=== PATIENT | male | born 1960 | race African-American/Black ===

== ENCOUNTER 2019-02-04 14:05 | Emergency (ER) | payer MEDICAID ==
[~2019-02-04] VITALS: Ht 175.3 cm; Wt 100.0 kg
[2019-02-04 14:12] VITALS: BP 140/100
[2019-02-04] MEDS ORDERED: TETANUS, DIPHTHERIA, PERTUSSIS VAC/PF 0.5ML (>7YR OLD) IM ONE (15:15)
[2019-02-04] MEDS ORDERED: BACITRACIN ZINC OINT UDPKT TOP ONE (15:15)
[2019-02-04] MEDS ORDERED: ACETAMINOPHEN 500MG TABLET PO ONE (15:15)
[2019-02-04] MEDS ORDERED: LIDOCAINE 1%/EPI 1:100,000 10 ML VIAL IJ ONE (15:15)
[2019-02-04] MEDS ORDERED: BACITRACIN 15GM TUBE TOP SCH (15:30)
[2019-02-04] MEDS ORDERED: LIDOCAINE HCL/EPINEPHRINE 1%-EPI 1:100,000 20 ML VIAL INFIL NR (15:45)
[2019-02-04] MEDS ORDERED: HYDROCODONE/ACETAMINOPHEN 10/325MG TABLET PO ONE (16:45)
== END 2019-02-04 18:42 | disposition home or self-care (01) ==
LOC: ER 14:05
DX: S81.012A Laceration without foreign body, left knee, initial encounter (principal); F17.200 Nicotine dependence, unspecified, uncomplicated; V29.88XA Motorcycle rider (driver) (passenger) injured in other specified transport accidents, initial encounter; Y93.89 Activity, other specified; Y92.89 Other specified places as the place of occurrence of the external cause; Y99.8 Other external cause status
CPT/HCPCS: 12036; 73560; 90471; 90715; 99284; J3490; Z7610; 29505; 99283